=== PATIENT | male | born 1990 | race Caucasian/White ===

== ENCOUNTER 2017-06-14 17:39 | Emergency (ER) | payer SELFPAY ==
[~2017-06-14] VITALS: Ht 175.3 cm; Wt 78.0 kg
[2017-06-14] MEDS ORDERED: LIDOCAINE/EPI 2% 1:100,00 (XYLOCAINE) 20 ML VIAL ONE (20:08)
[2017-06-14] MEDS ORDERED: SULF1TAB35 PO (20:12)
--- NOTE | 2017-06-14 20:13 | ED General ---
General Chief Complaint: Skin/Wound Problems Stated Complaint: ABCESS BEHIND L EAR Nursing Triage Note: PT TO ED 6 W/ C/O POSS ABSCESS BEHIND LT EAR ONSET X4 DAYS. REPORTS HAS HX OF SEBACIOUS GLAND DISORDER Nursing Sepsis Screen: No Definite Risk Source of Information: Patient Exam Limitations: No Limitations History of Present Illness Date Seen by Provider: Jun 14, 2017 Time Seen by Provider: 19:40 Initial Comments 26-year-old male patient presents to the emergency department with complaints of a possible abscess posterior to the left ear 4 days. Does have a history of similar symptoms with removal of the sebaceous glands. Timing/Duration: 3-4 Days, Getting Worse Modifying Factors: worse with Other (palpation) Allergies and Home Medications Allergies Coded Allergies: No Known Drug Allergies (Unverified , 06/14/17) Home Medications Minocycline HCl 100 Mg Capsule, 100 MG PO BID, #14 Ref 0 Prescribed by: AUDRA GRANADO on 06/14/172056 Sulfamethoxazole/Trimethoprim 1 Each Tablet, 1 EACH PO BID, #20 Ref 0 Prescribed by: AUDRA GRANADO on 06/14/172011 Tramadol HCl 50 Mg Tablet, 50 MG PO Q4H PRN for pain, #14 Ref 0 Prescribed by: AUDRA GRANADO on 06/14/172056 Constitutional: No chills, No fever, No malaise EENTM: see HPI Respiratory: no symptoms reported Cardiovascular: no symptoms reported Musculoskeletal: no symptoms reported Skin: see HPI Psychiatric/Neurological: No Symptoms Reported Past Sqgucwn-Ikbklr-Vklwjc Hx Patient Social History Alcohol Use: Denies Use Recreational Drug Use: No Smoking Status: Never a Smoker Recent Foreign Travel: No Contact w/Someone Who Travel: No Recent Infectious Disease Expo: No Recent Hopitalizations: No Physical Abuse: No Sexual Abuse: No Mistreated: No Fear: No Surgeries History of Surgeries: No Respiratory History of Respiratory Disorde: No Cardiovascular History of Cardiac Disorders: No Neurological History of Neurological Disord: No Genitourinary History of Genitourinary Disor: No Gastrointestinal History of Gastrointestinal Di: No Musculoskeletal History of Musculoskeletal Dis: No Endocrine History of Endocrine Disorders: No HEENT History of HEENT Disorders: No Cancer History of Cancer: No Psychosocial History of Psychiatric Problem: No Suicide Risk Score: 0 Integumentary History of Skin or Integumenta: Yes (SEBACIOUS GLAND DISORDER) Blood Transfusions History of Blood Disorders: No Reviewed Nursing Assessment Reviewed/Agree w Nursing PMH: Yes Family Medical History Significant Family History: No Pertinent Family Hx Physical Exam Vital Signs Vital Sign - Last 12Hours 06/14/17 18:56 Temp 97.9 Pulse 80 Resp 20 B/P (MAP) 142/84 (103) Pulse Ox 100 O2 Delivery Room Air Capillary Refill : Less Than 3 Seconds General Appearance: No Apparent Distress, WD/WN HEENT: PERRL/EOMI, Pharynx Normal, Other (1x1.5cm infected sebaceous cyst posterior to the left ear) Neck: Full Range of Motion, Normal Inspection, Non Tender, Supple Extremity: Normal Capillary Refill Neurologic/Psychiatric: Alert, Oriented x3, Normal Mood/Affect Skin: Normal Color, Warm/Dry, Other (1x1.5cm infected sebaceous cyst with mild erythema overlying the sebaceous gland posterior to the left ear) Additional Procedures : Progress Procedure: Excision of post-auricular infected sebaceous cyst Area prepped with Betadine paint. 2 percent lidocaine with epinephrine infused into the skin overlying the sebaceous cyst. 11 blade scalpel was used to make an elliptical incision around the sebaceous gland. The sebaceous cyst was removed with the cell wall intact and in its entirety. Skin edges were reapproximated with 4-0 Ethilon suture in an interrupted fashion. Blood loss minimal. Patient tolerated the procedure well. Progress/Results/Core Measures Suspected Sepsis Recent Fever Within 48 Hours: No Infection Criteria Present: None New/Unexplained Altered Menta: No Sepsis Screen: No Definite Risk Sepsis Diagnosis: SIRS Temperature:97.9 Pulse: 80 Respiratory Rate: 20 Blood Pressure 142 /84 Mean: 103 Results/Orders My Orders Orders - AUDRA GRANADO Rx-Trimeth/Sulfameth Ds Tab (Rx-Bactrim/ (06/14/17 21:01) Hydrocodone/Apap 5/325 Tablet (Lortab 5 (06/14/17 21:15) Vital Signs/I&O Capillary Refill : Less Than 3 Seconds Blood Pressure Mean: 103 Departure Communication (Admissions) Progress Notes Patient seen, evaluated, and cyst removal performed. Plan for discharge to home. Patient to return in one week for suture removal. Impression Impression: Primary Impression: Infected sebaceous cyst of skin Disposition: HOME, SELF-CARE Condition: Improved Departure-Patient Inst. Decision time for Depature: 20:11 Referrals: NO,LOCAL PHYSICIAN (PCP/Family) Primary Care Physician Patient Instructions: SEBACEOUS CYST Add. Discharge Instructions: All discharge instructions reviewed with patient and/or family. Voiced understanding. Medications as instructed. Tylenol extra strength over-the- counter as directed for pain. Ibuprofen 800 mg by mouth every 8 hours as needed for pain. Tomorrow morning you may begin showering with antibacterial soap. Pat dry and apply Triple Antibiotic ointment twice daily for 3 days. Cover with a bandage if needed. Return to the emergency department in 7 days for suture removal. Return to the emergency department immediately for worsened pain, redness, fever, drainage, or any other concerns. Follow-up with your family practitioner if needed. Scripts Minocycline HCl (Minocycline HCl) 100 Mg Capsule 100 MG PO BID, #14 CAP 0 Refills Prov: AUDRA GRANADO 06/14/17 Tramadol HCl (Tramadol HCl) 50 Mg Tablet 50 MG PO Q4H Y for pain, #14 TAB 0 Refills Prov: AUDRA GRANADO 06/14/17 Sulfamethoxazole/Trimethoprim (Bactrim Ds Tablet) 1 Each Tablet 1 EACH PO BID, #20 TAB 0 Refills Prov: AUDRA GRANADO 06/14/17 AUDRA GRANADO Jun 14, 2017 20:13
[2017-06-14] MEDS ORDERED: MINO100C2 PO (20:57)
[2017-06-14] MEDS ORDERED: TRAM50TA2 PO (20:57)
[2017-06-14] MEDS ORDERED: RX-TRIMETH/SULFA. 160-800 MG (BACTRIM DS) TAB PPK#2 PO STA (21:01)
[2017-06-14 21:08] VITALS: BP 0/0
[2017-06-14] MEDS ORDERED: HYDROcodone/APAP 5 MG/325 MG (LORTAB) TAB PO ONE (21:15)
== END 2017-06-14 21:08 | disposition home or self-care (01) ==
LOC: EDUNIT# 17:39 → ER 17:42
DX: L72.3 Sebaceous cyst (principal)